=== PATIENT | male | born 1990 | race Caucasian/White ===

== ENCOUNTER 2021-07-24 17:55 | Emergency (ER) | payer MEDICAID | END 2021-07-24 21:13 | disposition home or self-care (01) | LOC: JP.ED 17:55 | DX: T58.91XA Toxic effect of carbon monoxide from unspecified source, accidental (unintentional), initial encounter (principal); R42 Dizziness and giddiness | CPT/HCPCS: 36415; 36600; 80053; 82375; 82803; 85025; 99282; 99284 ==